=== PATIENT | female | born 1950 | race African-American/Black ===

== ENCOUNTER → 2016-07-27 | Day surgery (SDC) | payer MEDICARE ==
[2016-07-27] VITALS (10 sets, daily range): BP systolic 114–139; BP diastolic 82–95
[~2016-07-27] VITALS: Ht 167.6 cm; Wt 56.7 kg
[~2016-07-27] MED LIST: ALPRAZOLAM0.25 MG ORAL; AMLODIPINE BESY10 MG ORAL; BUPROPION XL300 MG ORAL; Betamethasone Sod Phos/Acetate 6 MG/ML INJ ONE; Bupivacaine 0.5% Inj 30 ml vial INJ ONE; DiphenhydrAMINE 50mg/ml Inj IVP PRN; Hydromorphone 0.5mg/0.5ml inj IVP PRN; Ketorolac 30mg Inj IV PRN; LR 1000ml 1,000 ML IVLG SCH; LR 1000ml ONE; Labetalol 5mg/ml 20ml vial IV PRN; Lidocaine 1% MPF 10mg/ml 5ml ONE; Lidocaine 2% MPF 5ml Vial INJ ONE; Midazolam 2mg/2ml Inj ONE; NS Irrig 1000ml ONE; Propofol 10mg/ml 20ml IV ONE; Sterile Water Irrig 1000ml IRRIG ONE; fentaNYL 100 mcg/2 mL IV ONE; fentaNYL 100 mcg/2 mL IV PRN
--- NOTE | 2016-07-27 06:41 | Pre-Procedure Note/Attestation ---
Pre-Procedure Note/Attestation Complete Prior to Procedure Planned Procedure: left Indications for Procedure Pre-Operative Diagnosis: Chronic painful left foot 5th toe interdigital area due to underlying exostosis and hammertoe. Attestation I attest that I discussed the nature of the procedure; its benefits; risks and complications; and alternatives (and the risks and benefits of such alternatives ), prior to the procedure, with the patient (or the patient's legal phone representative). I attest that, if there was a reasonable possibility of needing a blood transfusion, the patient (or the patient's legal phone representative) was given the [facility] standardized written summary, pursuant to the [place] Blood Safety Act ([place] Health and Safety Code # 1645, as amended). I attest that I re-evaluated the patient just prior to the surgery and that there has been no change in the patient's H&P, except as documented below: CAESAR HSU Jul 27, 2016 06:41
--- NOTE | 2016-07-27 06:51 | Anethesia Preoperative Eval ---
Anesthesia Pre-op PMH/ROS General Date of Evaluation: Jul 27, 2016 Anesthesiologist: Sim ASA Score: ASA 2 Mallampati Score Class I : Soft palate, uvula, fauces, pillars visible Class II: Soft palate, uvula, fauces visible Class III: Soft palate, base of uvula visible Class IV: Only hard plate visible Mallampati Classification: Class II Surgeon: Desean Diagnosis: Left foot 5th hammer toe Surgical Procedure: Left foot 5th hammer toe correction Anesthesia History: none Family History: no anesthesia problems Allergies: Coded Allergies: No Known Allergies (Unverified , 07/27/16) Medications: see eMAR Past Medical History Cardiovascular: Reports: HTN, Denies: CAD, PA, arrhythmia, other, valve dz Pulmonary: Denies: COPD, YULIA[place], asthma, other Gastrointestinal/Genitourinary: Reports: GERD, Denies: CRI, ESRD, other Neurologic/Psychiatric: Reports: depression/anxiety, Denies: CVA, TIA, dementia, other Endocrine: Denies: DM, hypothyroidism, other, steroids HEENT: Denies: QUILEUTE (L), QUILEUTE (R), cataract (L), cataract (R), glaucoma, other Hematology/Immune: Denies: DVT, anemia, bleeding disorder, other Musculoskeletal/Integumentary: Denies: DDD, DJD, OA, RA, edema, other PSxH Narrative: ZOLTAN/BSO, lap ming, Anesthesia Pre-op Phys. Exam Physician Exam Last Vital Signs Date Time Temp Pulse Resp B/P Pulse Ox O2 Delivery O2 Flow Rate FiO2 07/27/16 06:44 97.6 90 18 133/95 100 Room Air Constitutional: NAD Cardiovascular: RRR Respiratory: CTA Airway Exam Mallampati Score: Class II MO: full ROM: full Anesthesia Pre-op A/P Labs see chart Studies Pre-op Studies: EKG - sr Risk Assessment & Plan Assessment: ASA II Plan: MAC Status Change Before Surgery: No Pre-Antibiotics Drug: Ancef 1g Given Within 1 Hr of Incision: Yes Time Given: 07:15 WILDER EMERSON M.D. Jul 27, 2016 06:51
--- NOTE | 2016-07-27 06:51 | Immediate Post-Op Evaluation ---
Immediate Post-Op Evalulation Immediate Post-Op Evalulation Procedure: Left foot 5th hammer toe correction Date of Evaluation: Jul 27, 2016 Time of Evaluation: 08:01 IV Fluids: 600 Blood Products: 0 Estimated Blood Loss: min Urinary Output: 0 Blood Pressure Systolic: 114 Blood Pressure Diastolic: 82 Pulse Rate: 81 Respiratory Rate: 16 O2 Sat by Pulse Oximetry: 100 Temperature (Fahrenheit): 97.2 Pain Score (1-10): 0 Nausea: No Vomiting: No Complications 0 Patient Status: awake, reacts, patent, none Hydration Status: adequate Drug: Ancef 1g Given Within 1 Hr of Incision: WILDER Hernandez M.D. Jul 27, 2016 06:51
--- NOTE | 2016-07-27 06:52 | 48 Hour Post Anesthesia Eval ---
Post Anesthesia Evaluation Procedure: Left foot 5th hammer toe correction Date of Evaluation: Jul 27, 2016 Blood Pressure Systolic: 117 0: 85 Pulse Rate: 79 Respiratory Rate: 15 O2 Sat by Pulse Oximetry: 99 Airway: patent Nausea: No Vomiting: No Pain Intensity: 0 Hydration Status: adequate Cardiopulmonary Status: at baseline Mental Status/LOC: patient returned to baseline Post-Anesthesia Complications: 0 Follow-up care needed: ready to discharge WILDER EMERSON M.D. Jul 27, 2016 06:52
--- NOTE | 2016-07-27 10:42 | Diagnostic Imaging Report ---
Indications: Status post left foot surgery Technique: 3 views left foot Findings: Comparison: None Head of the fifth metatarsal has been resected. The fifth phalanges appear mildly displaced laterally. Overlying soft tissues are swollen and bandaged. First metatarsophalangeal joint narrowed with marginal osteophyte formation. IMPRESSION: Fifth digit are surgical changes as described First metatarsophalangeal osteoarthritis
--- NOTE | 2016-07-28 13:17 | Operative Note - Dictated ---
DATE OF OPERATION: 07/27/2016 SURGEON: Patrick Anton D.P.M. ANESTHESIOLOGIST: Katie Montemayor M.D. ANESTHESIA: Monitored anesthesia control with local anesthetic. PREOPERATIVE DIAGNOSIS: Painful left fifth toe with multiple callosities. POSTOPERATIVE DIAGNOSIS: Painful left fifth toe with multiple callosities. PROCEDURE PERFORMED: Under mild sedation, the patient was brought into the operating room, placed on the operating table in the supine position. Approximately 7 mL of lidocaine plain was given in the V block fashion about the base of the fifth toe, left foot. It should be noted on the medial and lateral side of the fifth toe there is increased callus formation with underlying bony prominence causing the callus. Next, the foot was draped and prepped in the usual aseptic technique utilizing Betadine and then previously ankle tourniquet was inflated to 225 mmHg for hemostasis. Attention was directed over the lateral aspect of the left fifth toe. Approximately 2 cm longitudinal incision was placed. Incision was deepened through sharp and blunt dissection and all neurovascular structures were retracted. Next a longitudinal capsulotomy was performed to isolate the head of the proximal phalanx. The head of the proximal phalanx both at the medial and lateral aspect was palpated to be the source of the callus formation and the cause of the pain. Utilizing a bone cutter, the head of the proximal phalanx was removed. There was also prominence at the base of the intermediate phalanx. These bony prominences were also smoothed. An intraoperative x-ray was taken and FluoroScan was taken to show that the prominence was removed. Next, the area was flushed with normal saline and the capsular tissues were reapproximated with 4-0 Vicryl and the underlying skin is sutured with 5-0 nylon. A postop injection utilizing 10 mL of 0.5% Marcaine mixed with 1 mL of Celestone Soluspan infiltrated in a V block fashion about the base of the fifth toe. Approximately 7 mL of the material was used. Next, the foot was dressed with Xeroform, Betadine soaked 4x4s, Fernando, and a compressive Coban dressing, and at this time tourniquet was released and all digits retained vascularity, noted by the immediate hyperemic response to all digits. The patient tolerated the procedure well and left the operating room with vital signs stable. The patient was sent to physiotherapy for partial weightbearing on the left for evaluation. Then, the patient was sent home with pain medications. The patient is to keep the left foot and leg elevated and ice for 20 minutes every 3 hours and will be followed up in my office next week. Patrick Anton DPM DR: DANIELA JOB#: [id number] CC: [place]
== END | disposition home or self-care (01) ==
LOC: SUR 06:13
DX: M20.42 Other hammer toe(s) (acquired), left foot (principal); L84 Corns and callosities; F32.9 Major depressive disorder, single episode, unspecified; F41.9 Anxiety disorder, unspecified; I10 Essential (primary) hypertension; K21.9 Gastro-esophageal reflux disease without esophagitis; Z90.49 Acquired absence of other specified parts of digestive tract; Z90.710 Acquired absence of both cervix and uterus; Z90.722 Acquired absence of ovaries, bilateral; Z90.79 Acquired absence of other genital organ(s)
CPT/HCPCS: 28285; 73630; 97161; G8978; G8979; G8980; J0690; J0702; J2250; J2405; J2704; J3010; J3490; J7120; 94003; 94150

== ENCOUNTER 2018-04-26 10:42 | Inpatient (IN) | payer MEDICARE ==
[~2018-04-26] VITALS: Ht 167.6 cm; Wt 62.1 kg
[~2018-04-26 10:42] MED LIST changes: -Betamethasone Sod Phos/Acetate 6 MG/ML INJ ONE; -Bupivacaine 0.5% Inj 30 ml vial INJ ONE; -DiphenhydrAMINE 50mg/ml Inj IVP PRN; -Hydromorphone 0.5mg/0.5ml inj IVP PRN; -Ketorolac 30mg Inj IV PRN; -LR 1000ml 1,000 ML IVLG SCH; -LR 1000ml ONE; -Labetalol 5mg/ml 20ml vial IV PRN; -Lidocaine 1% MPF 10mg/ml 5ml ONE; -Lidocaine 2% MPF 5ml Vial INJ ONE; -Midazolam 2mg/2ml Inj ONE; -NS Irrig 1000ml ONE; -Propofol 10mg/ml 20ml IV ONE; -Sterile Water Irrig 1000ml IRRIG ONE; -fentaNYL 100 mcg/2 mL IV ONE; -fentaNYL 100 mcg/2 mL IV PRN
[2018-04-26 11:00] VITALS: BP 166/100
--- NOTE | 2018-04-26 12:14 | Emergency Room Report ---
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 She denies any pain complaints except for in her left bicep area of her arm, she also reports that she's been having one month history of vague abdominal discomfort which been mild and intermittent, not bothering her currently. She denies slurred speech, focal weakness, just reports that she was unable to use her fingers and coordinate typing on the left side today, reports the last time she is able to that was last night around 9 PM at home. She denies obvious weakness, slurred speech, headache, numbness, tingling, weakness just the L hand coordination issue as well as the left arm bicep area discomfort and vague abdominal discomfort Allergies: Coded Allergies: No Known Allergies (Unverified , 07/27/16) Patient History Past Medical History: see triage record Reviewed Nursing Documentation: PMH: Agreed; PSxH: Agreed Nursing Documentation-PMH Past Medical History: No History, Except For Hx Cardiac Problems: No Hx Hypertension: Yes Hx Pacemaker: No Hx Asthma: No Hx COPD: No Hx Diabetes: No Hx Cancer: No Hx Gastrointestinal Problems: No Hx Dialysis: No History Of Psychiatric Problem: Yes - anxiety, depression Hx Neurological Problems: No Hx Cerebrovascular Accident: No Hx Seizures: No Review of Systems All Other Systems: negative except mentioned in HPI Physical Exam Vital Signs Date Time Temp Pulse Resp B/P (MAP) Pulse Ox O2 Delivery O2 Flow Rate FiO2 04/26/18 10:49 98.4 65 16 157/99 99 Room Air Sp02 EP Interpretation: reviewed, normal General Appearance: no apparent distress, alert, non-toxic Head: normocephalic Eyes: bilateral eye normal inspection, bilateral eye PERRL, bilateral eye EOMI ENT: normal ENT inspection, hearing grossly normal, normal pharynx, no angioedema, normal voice, moist mucus membranes Neck: normal inspection, full range of motion, supple, supple/symm/no masses Respiratory: chest non-tender, lungs clear, normal breath sounds, no rhonchi, no respiratory distress, no retraction, no accessory muscle use, no wheezing, chest symmetrical, palpation of chest normal Cardiovascular #1: normal peripheral pulses, regular rate, rhythm, no edema, no gallop, no JVD, no murmur, no rub Cardiovascular #2: 2+ radial (R), 2+ radial (L) Gastrointestinal: normal inspection, non tender, soft, no mass, no guarding, no rebound Rectal: deferred Genitourinary: normal inspection, no CVA tenderness Musculoskeletal: back normal, gait/station normal, normal range of motion, non- tender, no calf tenderness, other - bony deformity of L hand dorsum, chronic and nontender Neurologic: alert, oriented x3, responsive, clinical rn liaison III-XII nml as tested, motor strength/tone normal, sensory intact, cerebellar normal - normal finger to nose , normal digit to digit exam of all 5 B/L hand digits with no obvious coordination difficulty, no tremor noted, normal gait, speech normal Psychiatric: judgement/insight normal, memory normal, mood/affect normal, no suicidal/homicidal ideation Skin: normal color, no rash, warm/dry, normal turgor Lymphatic: no adenopathy Medical Decision Making Diagnostic Impression: Primary Impression: Coordination abnormal ER Course Patient with possible CVA vs. TIA, out of the tPA window as last known normal at 9pm last night, also now with stroke scale of zero. Pt given asa, workup normal, will admit to Dr. Gardner. EKG Diagnostic Results EKG Time: 12:19 EP Interpretation: no stemi Rate: normal Rhythm: NSR ST Segments: no acute changes ASA given to the pt in ED: Yes Rhythm Strip Diag. Results Rhythm Strip Time: 14:08 EP Interpretation: yes Rate: 85 Rhythm: NSR, no PVC's, no ectopy Chest X-Ray Diagnostic Results Chest X-Ray Diagnostic Results : Chest X-Ray Ordered: Yes # of Views/Limited/Complete: 1 View Indication: Other - L arm pain EP Interpretation: Yes Interpretation: no consolidation, no effusion, no pneumothorax, no acute cardiopulmonary disease Impression: No acute disease Electronically Signed by: Jennifer Rodriguez MD CT/MRI/US Diagnostic Results CT/MRI/US Diagnostic Results : Imaging Test Ordered: ct head Impression nad Last Vital Signs Date Time Temp Pulse Resp B/P (MAP) Pulse Ox O2 Delivery O2 Flow Rate FiO2 04/26/18 11:00 65 16 Room Air 04/26/18 11:00 97.0 166/100 99 Disposition: ADMITTED INPATIENT Condition: Stable JENNIFER RODRIGUEZ M.D Apr 26, 2018 12:14
[2018-04-26 12:42] LABS: BASOPHILS % (AUTO) 2.1 % (0.0-2.0); EOSINOPHILS % (AUTO) 4.5 % (0.0-3.0); HEMATOCRIT 46.2 % (37.0-47.0); HEMOGLOBIN 14.4 G/DL (12.0-16.0); LYMPHOCYTES % (AUTO) 32.9 % (20.0-45.0); MEAN CORPUSCULAR VOLUME 93 FL (80-99); MONOCYTES % (AUTO) 4.5 % (1.0-10.0); PLATELET COUNT 415 K/UL (150-450); RED BLOOD COUNT 4.96 M/UL (4.20-5.40); RED CELL DISTRIBUTION WIDTH 11.9 % (11.6-14.8); WHITE BLOOD COUNT 8.8 K/UL (4.8-10.8)
[2018-04-26 12:54] LABS: ANION GAP 12 mmol/L (5-15); BLOOD UREA NITROGEN 16 mg/dL (7-18); CALCIUM 10.2 MG/DL (8.5-10.1); CARBON DIOXIDE 26 MMOL/L (21-32); CHLORIDE 106 MMOL/L (98-107); CREATININE 1.1 MG/DL (0.55-1.30); POTASSIUM 4.1 MMOL/L (3.5-5.1); SODIUM 143 MMOL/L (136-145)
[2018-04-26 13:01] LABS: ALANINE AMINOTRANSFERASE 22 U/L (12-78); ALBUMIN 4.1 G/DL (3.4-5.0); ALKALINE PHOSPHATASE 157 U/L (46-116); ASPARTATE AMINO TRANSFERASE 19 U/L (15-37); BILIRUBIN,TOTAL 0.3 MG/DL (0.2-1.0); CHOLESTEROL 235 MG/DL (< 200); HDL CHOLESTEROL 90 MG/DL (40-60); TRIGLYCERIDES 129 MG/DL (30-150)
--- NOTE | 2018-04-26 13:36 | Diagnostic Imaging Report ---
Indication: Headache Technique: Contiguous 5 mm thick transaxial imaging of the head obtained in a Siemens Sensation [address] scanner. Soft tissue and bone windows generated. Automatic Exposure Control was utilized. Total Dose length Product (DLP): [address] Dose Index Volume (CTDIvol): 0.15, 70.38 mGy Comparison: none Findings: There is mild prominence of the ventricles, basal cisterns, and cerebral sulci consistent with atrophy. Mild, nonspecific, white matter hypoattenuation is noted throughout the brain consistent with chronic small vessel disease. There is no midline shift, edema, acute hemorrhage, mass effect, or abnormal extra-axial fluid collections. Bones and extra osseous soft tissues are unremarkable. There is a partial opacification of the sphenoid sinus. Impression: No acute intracranial bleed, mass effect or edema. Mild atrophy of the brain. Nonspecific white matter hypoattenuation probably due to chronic small vessel disease. Sinusitis The CT scanner at [facility] is accredited by the [employer] and the scans are performed using dose optimization techniques as appropriate to a performed exam including Automatic Exposure control.
--- NOTE | 2018-04-26 13:53 | Diagnostic Imaging Report ---
Indication: Dyspnea Comparison: 02/25/2006 A single view chest radiograph was obtained. Findings: No definite infiltrate or pulmonary vascular congestion identified. The heart is enlarged. The aorta is mildly enlarged consistent with atherosclerotic vascular disease. The bones are osteopenic. Impression: No acute disease
[2018-04-26 15:27] VITALS: BP 135/88
[2018-04-26] MEDS: Aspirin Baby 81mg ORAL SCH (15:45)
[2018-04-26 16:00] VITALS: BP_SYST 135; BP_SYST 160; BP_DIAS 109; BP_DIAS 88
[2018-04-26] MEDS: BuPROPion XL 300mg tab ORAL SCH (16:00)
[2018-04-26] MEDS: Enoxaparin 40mg Inj SUBQ SCH (16:11)
[2018-04-26 20:00] VITALS: BP 122/88
[2018-04-26] MEDS: ALPRAZolam 0.25mg tab ORAL PRN (22:32)
--- NOTE | 2018-04-27 06:14 | Nephrology Progress Note ---
Assessment/Plan Assessment/Plan A/P 1) TIA- CT Head negative - awaiiting Carotid US reults - MRI Head - DC once cleared by neuro 2) Anxitey- Well butrin/Xanax 3) HTN- stable 4) DVT Prophylaxsis with lovenox AM labs pending. DC once cleared by Neurology Subjective Date patient seen: Apr 27, 2018 Time patient seen: 06:11 ROS Limited/Unobtainable: No Neurologic/Psychiatric: Reports: anxiety Allergies: Coded Allergies: No Known Allergies (Unverified , 07/27/16) All Systems: reviewed and negative except above Subjective Patient feeling better. Says left hand stronger Objective Last 24 Hour Vital Signs Date Time Temp Pulse Resp B/P (MAP) Pulse Ox O2 Delivery O2 Flow Rate FiO2 04/27/18 04:00 76 04/27/18 04:00 85 04/26/18 21:00 Room Air 04/26/18 20:00 99 04/26/18 20:00 98.1 99 23 122/88 (99) 98 04/26/18 16:08 98 160/103 04/26/18 16:00 108 04/26/18 16:00 98.6 106 18 160/109 (126) 98 04/26/18 15:49 Room Air 04/26/18 15:27 93 16 135/88 99 Room Air 04/26/18 15:26 97.0 93 23 135/88 99 Room Air 04/26/18 11:00 65 16 Room Air 04/26/18 11:00 97.0 109 23 166/100 99 Room Air 04/26/18 10:49 98.4 65 16 157/99 99 Room Air Intake and Output 04/26/18 04/27/18 18:59 06:59 Intake Total 180 ml Balance 180 ml Intake Oral 180 ml Laboratory Tests 04/26/18 12:15: White Blood Count 8.8, Red Blood Count 4.96, Hemoglobin 14.4, Hematocrit 46.2, Mean Corpuscular Volume 93, Mean Corpuscular Hemoglobin 29.1, Mean Corpuscular Hemoglobin Concent 31.2L, Red Cell Distribution Width 11.9, Platelet Count 415, Mean Platelet Volume 6.3L, Neutrophils (%) (Auto) 56.0, Lymphocytes (%) (Auto) 32.9, Monocytes (%) (Auto) 4.5, Eosinophils (%) (Auto) 4.5H, Basophils (%) (Auto ) 2.1H, Prothrombin Time 10.5, Prothromb Time International Ratio 1.0, Activated Partial Thromboplast Time 26, Sodium Level 143, Potassium Level 4.1, Chloride Level 106, Carbon Dioxide Level 26, Anion Gap 12, Blood Urea Nitrogen 16, Creatinine 1.1, Estimat Glomerular Filtration Rate 59.8, Glucose Level 86, Calcium Level 10.2H, Total Bilirubin 0.3, Aspartate Amino Transf (AST/SGOT) 19, Alanine Aminotransferase (ALT/SGPT) 22, Alkaline Phosphatase 157H, Troponin I 0.000, Total Protein 8.3H, Albumin 4.1, Globulin 4.2, Albumin/Globulin Ratio 1.0 , Triglycerides Level 129, Cholesterol Level 235H, LDL Cholesterol 117H, HDL Cholesterol 90H, Cholesterol/HDL Ratio 2.6L, Lipase 93 Height (Feet): 5 Height (Inches): 6.00 Weight (Pounds): 137 General Appearance: no apparent distress, alert EENT: normal ENT inspection Neck: normal alignment, supple Cardiovascular: normal rate, regular rhythm Respiratory/Chest: lungs clear, normal breath sounds Abdomen: non tender, soft Edema: no edema noted Arm (L), no edema noted Arm (R), no edema noted Leg (L), no edema noted Leg (R), no edema noted Pedal (L), no edema noted Pedal (R), no edema noted Generalized Gadiel Magana MD Apr 27, 2018 06:14
[2018-04-27] MEDS ORDERED: Gadavist 7.5mMol/7.5ml vial IV PRN (06:15)
[2018-04-27 08:00] VITALS: BP 112/87
[2018-04-27 08:17] LABS: BASOPHILS % (AUTO) 1.9 % (0.0-2.0); EOSINOPHILS % (AUTO) 6.6 % (0.0-3.0); HEMATOCRIT 43.5 % (37.0-47.0); HEMOGLOBIN 14.1 G/DL (12.0-16.0); LYMPHOCYTES % (AUTO) 42.8 % (20.0-45.0); MEAN CORPUSCULAR VOLUME 93 FL (80-99); MONOCYTES % (AUTO) 7.9 % (1.0-10.0); NEUTROPHILS % (AUTO) 40.7 % (45.0-75.0); PLATELET COUNT 416 K/UL (150-450); RED BLOOD COUNT 4.68 M/UL (4.20-5.40); RED CELL DISTRIBUTION WIDTH 11.8 % (11.6-14.8); WHITE BLOOD COUNT 7.5 K/UL (4.8-10.8)
[2018-04-27 08:45] LABS: ANION GAP 11 mmol/L (5-15); BLOOD UREA NITROGEN 13 mg/dL (7-18); CALCIUM 10.2 MG/DL (8.5-10.1); CARBON DIOXIDE 26 MMOL/L (21-32); CHLORIDE 105 MMOL/L (98-107); CREATININE 1.1 MG/DL (0.55-1.30); POTASSIUM 4.1 MMOL/L (3.5-5.1); SODIUM 141 MMOL/L (136-145)
[2018-04-27] MEDS: BuPROPion XL 300mg tab ORAL SCH (09:05)
[2018-04-27] MEDS: Aspirin Baby 81mg ORAL SCH (09:06)
[2018-04-27 12:00] VITALS: BP 130/88
--- NOTE | 2018-04-27 15:02 | Cardiology Report ---
APPROVED REPORT EKG Measurement Heart [id number] Normal sinus rhythm Possible Left atrial enlargement Cannot rule out Anterior infarct, age undetermined Abnormal ECG
[2018-04-27 16:00] VITALS: BP 137/89
[2018-04-27] MEDS: Enoxaparin 40mg Inj SUBQ SCH (18:09)
[2018-04-27 20:00] VITALS: BP_SYST 137; BP_SYST 165; BP_DIAS 90; BP_DIAS 91
[2018-04-27 21:21] VITALS: BP 151/101
[2018-04-27] MEDS: ALPRAZolam 0.25mg tab ORAL PRN (21:26)
[2018-04-28] VITALS: BP 122/88
[2018-04-28 06:44] VITALS: BP 132/91
[2018-04-28 08:05] VITALS: BP 135/98
[2018-04-28] MEDS: Aspirin Baby 81mg ORAL SCH ×2 (08:27→09:00)
[2018-04-28] MEDS: BuPROPion XL 300mg tab ORAL SCH ×2 (08:28→09:00)
[2018-04-28 08:40] LABS: ANION GAP 5 mmol/L (5-15); BLOOD UREA NITROGEN 11 mg/dL (7-18); CALCIUM 10.5 MG/DL (8.5-10.1); CARBON DIOXIDE 30 MMOL/L (21-32); CHLORIDE 106 MMOL/L (98-107); POTASSIUM 4.4 MMOL/L (3.5-5.1); SODIUM 141 MMOL/L (136-145)
[2018-04-28] MEDS ORDERED: Tubing IV Secondary IV ONE (08:46)
[2018-04-28] MEDS ORDERED: NS 275ml ONE (08:46)
--- NOTE | 2018-04-28 08:54 | Nephrology Progress Note ---
Assessment/Plan Assessment/Plan A/P 1) TIA- CT Head negative - awaiiting Carotid US reults - MRI Head félix and if negative will DC as Neurologist unavailable 2) Anxitey- Wellbutrin/Xanax 3) HTN- stable 4) DVT Prophylaxsis with lovenox Subjective Date patient seen: Apr 28, 2018 Time patient seen: 08:53 ROS Limited/Unobtainable: No Allergies: Coded Allergies: No Known Allergies (Unverified , 07/27/16) Subjective Patient feeling better. All symptoms resolved Objective Last 24 Hour Vital Signs Date Time Temp Pulse Resp B/P (MAP) Pulse Ox O2 Delivery O2 Flow Rate FiO2 04/28/18 08:27 108 135/98 04/28/18 08:05 97.7 108 22 135/98 (110) 97 04/28/18 06:44 98.7 80 20 132/91 (105) 97 04/28/18 00:00 97.2 86 20 122/88 (99) 98 04/27/18 21:21 98.2 99 20 151/101 (118) 99 04/27/18 21:00 Room Air 04/27/18 20:00 98.2 88 18 137/91 (106) 99 88 04/27/18 20:00 107 04/27/18 16:00 86 04/27/18 16:00 98.2 84 20 137/89 (105) 99 04/27/18 12:00 86 04/27/18 12:00 97.4 87 20 130/88 (102) 97 04/27/18 10:55 97.0 04/27/18 09:05 88 112/87 04/27/18 09:00 Room Air Intake and Output 04/27/18 04/28/18 18:59 06:59 Intake Total 500 ml 400 ml Balance 500 ml 400 ml Intake Oral 500 ml 400 ml # Voids 6 3 Laboratory Tests 04/28/18 06:50: Sodium Level [Pending], Potassium Level [Pending], Chloride Level [Pending], Carbon Dioxide Level [Pending], Blood Urea Nitrogen [Pending], Creatinine [ Pending], Estimat Glomerular Filtration Rate [Pending], Glucose Level [Pending] , Calcium Level [Pending] Height (Feet): 5 Height (Inches): 6.00 Weight (Pounds): 137 General Appearance: no apparent distress, alert EENT: normal ENT inspection Neck: normal alignment, supple Cardiovascular: normal rate, regular rhythm Respiratory/Chest: lungs clear, normal breath sounds Abdomen: non tender, soft Edema: no edema noted Arm (L), no edema noted Arm (R), no edema noted Leg (L), no edema noted Leg (R), no edema noted Pedal (L), no edema noted Pedal (R), no edema noted Generalized Gadiel Magana MD Apr 28, 2018 08:54
[2018-04-28] MEDS ORDERED: Gadavist 7.5mMol/7.5ml vial IV PRN (09:00)
[2018-04-28] MEDS ORDERED: ALPRAZolam 0.25mg tab ORAL PRN (09:45)
[2018-04-28] MEDS: Lactulose 20gm/30ml UDC ORAL SCH ×2 (09:47→13:00)
[2018-04-28 12:00] VITALS: BP 138/95
[2018-04-28 16:00] VITALS: BP 135/96
[2018-04-28] MEDS ORDERED: Enoxaparin 40mg Inj SUBQ SCH (17:00)
[2018-04-28 20:00] VITALS: BP 130/93
[2018-04-29] VITALS: BP 129/80
[2018-04-29 04:47] VITALS: BP 124/84
[2018-04-29 08:00] VITALS: BP 121/82
[2018-04-29] MEDS: Aspirin Baby 81mg ORAL SCH (08:16)
[2018-04-29] MEDS: BuPROPion XL 300mg tab ORAL SCH (08:17)
--- NOTE | 2018-04-29 09:11 | Nephrology Progress Note ---
Assessment/Plan Assessment/Plan A/P 1) TIA- CT Head negative - IF MRI and Carotid US negative then will DC patient - awaiting Neuro evaluation 2) Anxitey- Wellbutrin/Xanax 3) HTN- stable 4) DVT Prophylaxsis with lovenox Subjective Date patient seen: Apr 29, 2018 Time patient seen: 09:05 Allergies: Coded Allergies: No Known Allergies (Unverified , 07/27/16) Subjective Patient not in room. Having MRI Objective Last 24 Hour Vital Signs Date Time Temp Pulse Resp B/P (MAP) Pulse Ox O2 Delivery O2 Flow Rate FiO2 04/29/18 08:17 98 134/98 04/29/18 08:00 97.9 89 21 121/82 (95) 97 89 04/29/18 04:47 97.8 80 20 124/84 (97) 99 04/29/18 00:00 97.7 82 20 129/80 (96) 98 04/28/18 21:00 Room Air 04/28/18 20:00 98.1 89 20 130/93 (105) 98 04/28/18 16:00 97.7 87 20 135/96 (109) 95 04/28/18 12:00 97.8 92 20 138/95 (109) 98 04/28/18 09:30 Room Air Intake and Output 04/28/18 04/29/18 19:00 07:00 Intake Total 490 ml 250 ml Balance 490 ml 250 ml Intake Oral 490 ml 250 ml # Voids 1 2 # Bowel Movements 1 Height (Feet): 5 Height (Inches): 6.00 Weight (Pounds): 137 Gadiel Magana MD Apr 29, 2018 09:11
--- NOTE | 2018-04-29 10:28 | Diagnostic Imaging Report ---
Indication: Left arm and hand weakness Technique: The head was imaged in a 1.5 Cynthia magnet. Sequences obtained include sagittal and axial T1 FLAIR, axial T2 fast spin echo with fat saturation, axial T2 FLAIR, diffusion and ADC map. Gadolinium-enhanced axial and coronal T1 FLAIR obtained also. Comparison: CT head 04/26/18 Findings: There is mild prominence of the sulci, ventricles, and basal cisterns consistent with atrophy. Mild, nonspecific T2 hyperintensity noted within white matter. This may be due to chronic small vessel disease. No abnormal enhancement is identified. There is no restricted diffusion. Josue-white differentiation is normal. There is no mass effect, midline shift, edema, or hemorrhage. There are no abnormal extra-axial or intra-axial fluid collections. The corpus callosum and sella are unremarkable. The brainstem and cerebellum are unremarkable. Bone marrow signal within the visualized osseous structures appears age appropriate and unremarkable otherwise. Some mucosal thickening in the ethmoid sinus noted. Small air-fluid level in the left maxillary sinus noted. Impression: No acute intracranial findings. No acute CVA, mass effect or edema. Age-related findings including atrophy and evidence of chronic small vessel disease involving white matter tracts. Sinusitis
[2018-04-29 12:00] VITALS: BP 135/97
--- NOTE | 2018-04-29 12:31 | Discharge Instructions ---
Discharge Instructions Discharge Instructions Services at Discharge: day care Diet: 2 GM sodium (low sodium) Resume Normal Activity?: Yes Activity: light activity Follow Up Orders Patient to follow up with Neurology Dr Modesto Bravo 1 week Patient to take ASA 81 mg daily Continue home medications as before For Congestive Heart Failure Reminder Report to your physician any weight gain of 5 pounds or more in one week. Gadiel Magana MD Apr 29, 2018 12:31
--- NOTE | 2018-04-30 12:24 | Discharge Summary ---
Discharge Summary Discharge Summary _ DATE OF ADMISSION: 04/26/2018 DATE OF DISCHARGE: 04/29/2018 REASON FOR ADMISSION: 67 years old female with history of hypertension ,anxiety, depression, presented with the left hand coordination difficulties. 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 Her boss suggested to come to ED for evaluation She denies headache, numbness, tingling, dizziness, slurred speech, blurred vision, any focal weakness, but reported inability to use her fingers and left arm bicep area discomfort. c Vital signs revealed slight;y elevated blood pressure- 157/99. EKG revealed sinus rhythm, no acute ischemic changes. Chest x-ray revealed no acute cardiopulmonary pathology. Troponin was negative. Electrolytes and renal parameters remained stable. CT of the head revealed no acute intracranial bleeding, mass effect or edema. Mild atrophy of the brain noted. Nonspecific white matter hypoattenuation, probably due to chronic small vessel disease. Patient admitted with diagnoses of TIA ,hypertension, anxiety. HOSPITAL COURSE: Patient admitted. MRI of the brain and carotid ultrasound were ordered. Neurology consult requested. DVT prophylaxis with Lovenox provided. Lipid panel revealed hypercholesterolemia with elevated total cholesterol and elevated LDL. Patient was on antiplatelet therapy with aspirin. Patient was counseled on low-fat low-cholesterol cardiac diet. Consider starting statin. Patient was reluctant to start statin in the hospital. Blood pressure was managed with calcium channel tran and remained stable. GI prophylaxis provided. MRI of the brain revealed no acute intracranial findings. No acute CVA, mass effect or edema. Carotid duplex showed minimal degree of stenosis bilaterally. All symptoms resolved. Patient likely had a TIA. Unfortunately unable to obtain neurology evaluation at this hospital. Patient clinically stabilized and was ready for discharge home . Outpatient follow-up with the primary care provider with referral to neurologist. Consider starting statin. Patient was continued on Wellbutrin and Xanax. FINAL DIAGNOSES: TIA Hypercholesterolemia Anxiety Hypertension DISCHARGE MEDICATIONS: See Medication Reconciliation list. DISCHARGE INSTRUCTIONS: Patient was discharged home . Follow up with primary care provider in one week. I have been assigned to dictate discharge summary for this account. I was not involved in the patient's management. Yusra Ross NP Apr 30, 2018 12:24
--- NOTE | 2018-04-30 13:00 | History and Physical Report ---
DATE OF ADMISSION: 04/26/2018 REASON FOR ADMISSION: Left-sided hand weakness and discoordination. HISTORY OF PRESENT ILLNESS: The patient is a pleasant 67-year-old female with known hypertension and anxiety. 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 She works periodically and today when she was at the office trying to type, the patient said she could not control her left hand and could not type accordingly. She denied any difficulties with speaking, focus, vision, or any other limbs. The patient says that the left hand discoordination was brief and has since resolved. She does have underlying anxiety and takes Wellbutrin and Xanax. ALLERGIES: No known drug allergies. PAST MEDICAL HISTORY: 1. Hypertension. 2. Anxiety. FAMILY HISTORY: Positive for hypertension. PAST SURGICAL HISTORY: Noncontributory. REVIEW OF SYSTEMS: NEUROLOGIC: The patient denies headache, change in vision, syncope, or presyncopal episodes. CARDIOVASCULAR: No current chest pain, palpitations, or angina. PULMONARY: No difficulty breathing, cough, or sputum. GASTROINTESTINAL/GENITOURINARY: No changes in urinary or bowel habits. No nausea, vomiting, or diarrhea. ENDOCRINOLOGY: No night sweats, fevers, or chills. LABORATORY DATA: Labs dated 04/26/2018, white cell count 8.8, hemoglobin 14.4, and platelet count 415. Sodium 143, potassium 4.1, BUN 16, and creatinine 1.1. Troponin of 0. PHYSICAL EXAMINATION: VITAL SIGNS: Blood pressure 135/88, respiratory rate 16, pulse 93, temperature 97.0, and 99% oxygen saturation on room air. GENERAL: The patient awake and alert, not otherwise in distress. HEENT: Extraocular muscles intact. No lymphadenopathy noted. CARDIOVASCULAR: S1, S2. No rubs or gallops. PULMONARY: Clear to auscultation bilaterally. No rales, rhonchi, or wheezes. ABDOMEN: Nondistended and nontender. EXTREMITIES: No edema. NEUROLOGICAL: 5/5+ strength in both upper and lower extremities. No gross focal neurological deficits noted. ASSESSMENT AND PLAN: 1. Transient ischemic attack with left hand isolated discoordination. The patient is being given aspirin. So far, workup has been negative including CT of the brain. Neurology has been consulted for further evaluation and management prior to discharge. 2. Hypertension, stable. Continue Norvasc. 3. DVT prophylaxis with Lovenox. 4. Anxiety. We will continue Wellbutrin and p.r.n. Xanax. The patient will be discharged once cleared by Neurology. Gadiel Magana MD DR: VIVIENNE JOB#: [id number] CC:
--- NOTE | 2018-05-01 12:34 | Diagnostic Imaging Report ---
APPROVED REPORT CPT Code: 70325 Vascular Symptoms Comments: SIDE WEAKNESS. Doppler Spectral Velocity Analysis RightLeft right SIDE: CCA/ECA - Imaging reveals no significant plaque in the common carotid and external carotid arteries. ICA - Imaging reveals irregular plaque in the internal carotid artery. The Doppler signal indicates the degree of stenosis is minimal (10%) in the internal carotid artery. VERTEBRAL- The vertebral arteries are patent, without evidence of stenosis or steal. LEFT SIDE: CCA - Imaging reveals no significant plaque within the extracranial carotid arteries. The Doppler spectral flow analysis is within normal limits throughout the extracranial carotid arteries. VERTEBRAL - The vertebral artery is within normal limits.
== END 2018-04-29 16:08 | disposition home or self-care (01) | DRG 69 ==
LOC: EMR 13:14 → 2E 14:00 → EDBEDREQ 14:03 → 2E 04-27 13:15 → 3E 04-27 20:26
DX: G45.9 Transient cerebral ischemic attack, unspecified (principal); I10 Essential (primary) hypertension; F41.9 Anxiety disorder, unspecified; E78.00 Pure hypercholesterolemia, unspecified
CPT/HCPCS: 36415; 70450; 70553; 71045; 80048; 80053; 80061; 83690; 84484; 85025; 85610; 85730; 93005; 93880; 99285; A9585; J2405